=== PATIENT | female | born 1955 | race Caucasian/White ===

== ENCOUNTER 2017-10-06 14:01 | Outpatient (RCR) | payer BC, SELFPAY | END 2017-11-05 14:01 | LOC: PT 14:01 | PROVIDERS: PCP Internal Medicine; Referring Provider Chiropractor; Visit Provider Chiropractor | DX: M25.561 Pain in right knee (principal); M23.91 Unspecified internal derangement of right knee ==

== ENCOUNTER → 2017-10-21 01:13 | Outpatient (CLI) | payer BC, SELFPAY ==
--- NOTE | 2017-10-21 15:30 | DI.REPORT_ITS ---
SYMPTOMS/DIAGNOSIS: SCREENING, Z12.31 MAMMOGRAM: Mammograms were interpreted according to the usual protocol including computer analysis with CAD system, tomosynthesis and C view imaging. The breasts are of moderate density with fairly symmetrical distribution of fibroglandular tissue. No dominant mass or clumped microcalcification is identified in either breast. A well-circumscribed nodule is noted in the posterior central portion of the left breast, unchanged in appearance in comparison with multiple previous examinations including October 2015. No new mass or clumped microcalcification seen. CONCLUSION: No specific evidence of malignancy at this time. Routine screening examinations are suggested at yearly intervals in this age group according to the ACS/ACR guidelines. Category 1, breast density category B. MQSA ASSESSMENT OF FINDINGS: Negative. Category 1. Patient will receive a letter notifying them of these results. BI-RADS category B. There are scattered areas of fibroglandular density.
== END ==
PROVIDERS: PCP Internal Medicine; Visit Provider Nurse Practitioner Family
DX: Z12.31 Encounter for screening mammogram for malignant neoplasm of breast (principal)
CPT/HCPCS: 77063; 77067

== ENCOUNTER 2018-10-24 09:38 | Outpatient (REF) | payer MEDICARE, BC, SELFPAY ==
--- NOTE | 2018-10-24 09:00 | PAPFT_PTH ---
PATIENT: VERONIKA DALLAS LOC: N U#:[id number] AGE/SX: 63/F ROOM: RE10/24/[address]: ROMARIO Alejandro : 1955 BED: DIS: 10/24/2018 SPEC #: [id number] RECD: 10/24/18 12:42 STATUS: CLIFFORD RELeesa #: [id number] MARYSOL: 10/24/18 09:[address]: Julissa Porter DEPT: [facility] Cytology RECD BY: Saanz Merritt Tissues: 1 - CX/ENDOCX FOR PAP SMEARS Procedures: PAP THIN PREP/[facility] Screening HPV DNA PROBE Comments: [id number]
== END 2018-10-24 09:58 ==
LOC: LBN 09:38
PROVIDERS: PCP Internal Medicine; Visit Provider Nurse Practitioner Family
DX: Z12.4 Encounter for screening for malignant neoplasm of cervix (principal); Z11.51 Encounter for screening for human papillomavirus (HPV)
CPT/HCPCS: 88142; 87624